=== PATIENT | male | born 1990 | race Caucasian/White ===

== ENCOUNTER 2016-11-10 19:33 | Inpatient (IN) | payer BC, OTHER ==
[~2016-11-10] VITALS: Ht 180.3 cm; Wt 59.6 kg
[~2016-11-10 19:33] MED LIST: CEPH-443 PO; IBUP-1542 PO
[2016-11-10] MEDS ORDERED: SODIUM CHLORIDE 0.9% 1L BAG IV* STA (20:26)
[2016-11-10] MEDS ORDERED: ACETAMINOPHEN 325 MG TAB PO ONE (20:30)
--- NOTE | 2016-11-10 20:46 | RADRPT ---
PROCEDURE: XR Chest AP portable CLINICAL INDICATION: Possible sepsis TECHNIQUE: An AP portable radiograph of the chest was submitted. COMPARISON: None. FINDINGS: Support Hardware: None Cardiovascular: The cardiovascular silhouette appears unremarkable. Lung Castellon: The lung castellon appear clear with no nodule, alveolar infiltrate, or interstitial promi nence evident. Pleural Spaces: No pneumothorax or pleural effusion is identified. Osseous Structures: The osseous structures appear intact. Soft Tissues: The soft tissues appear unremarkable. IMPRESSION: Unremarkable portable chest. Physician Brandee Date Time Electronically viewed and signed by Trudy Price Physician on 11/10/2016 20:46 RH/
[2016-11-10] MEDS ORDERED: METH10TA5 PO (20:47)
[2016-11-10] MEDS ORDERED: PRED10TA PO (20:55)
[2016-11-10 21:06] LABS: BASOPHILS % 0.2 % (0.0-2.0); EOSINOPHILS % 0.3 % (0.0-7.0); HEMATOCRIT 48.8 % (42.0-52.0); HEMOGLOBIN 15.8 g/dl (14.0-18.0); INR 1.03; LYMPHOCYTES # 2.9 10^3/ul (0.8-2.9); LYMPHOCYTES % 19.6 % (15.0-51.0); MEAN CORPUSCULAR HEMOGLOBIN 25.7 pg (29.0-33.0); MEAN CORPUSCULAR HGB CONC 32.4 g/dl (32.0-37.0); MEAN CORPUSCULAR VOLUME 79.5 fl (82.0-101.0); MEAN PLATELET VOLUME 9.6 fl (7.4-10.4); MONOCYTE # 0.5 10^3/ul (0.3-0.9); MONOCYTES % 3.1 % (0.0-11.0); NEUTROPHIL # 11.2 10^3/ul (1.6-7.5); NEUTROPHILS % 76.3 % (39.0-77.0); PLATELET COUNT 303 10^3/UL (140-415); PROTIME 13.5 Sec (12.2-14.2); PT RATIO 1.1; RED BLOOD COUNT 6.14 10^6/ul (4.70-6.10); RED CELL DISTRIBUTION WIDTH 13.2 % (11.5-14.5); WHITE BLOOD COUNT 14.7 10^3/ul (4.8-10.8)
[2016-11-10 21:07] LABS: PARTIAL THROMBOPLASTIN TIME 25.2 Sec (25.0-35.0)
[2016-11-10 21:13] LABS: ALANINE AMINOTRANSFERASE 59 IU/L (13-69); ALBUMIN 4.5 g/dl (3.3-4.9); ALBUMIN/GLOBULIN RATIO 1.95; ALKALINE PHOSPHATASE 57 IU/L (42-121); ANION GAP 20 (8-16); ASPARTATE AMINO TRANSFERASE 31 IU/L (15-46); BILIRUBIN,INDIRECT 0.8 mg/dl (0-1.1); BILIRUBIN,TOTAL 0.8 mg/dl (0.2-1.3); BLOOD UREA NITROGEN 19 mg/dl (7-20); CALCIUM 9.6 mg/dl (8.4-10.2); CARBON DIOXIDE 28 mmol/L (21-31); CHLORIDE 97 mmol/L (97-110); CREATININE 0.88 mg/dl (0.61-1.24); GLUCOSE 91 mg/dl (70-220); POTASSIUM 4.1 mmol/L (3.5-5.1); SODIUM 141 mmol/L (135-144); TOTAL PROTEIN 6.8 g/dl (6.1-8.1)
[2016-11-10 21:33] LABS: TROPONIN-I < 0.012 ng/ml (0.00-0.12)
[2016-11-10] MEDS ORDERED: DIPHENHYDRAMINE 50 MG INJ IV ONE (22:00)
[2016-11-10 22:27] LABS: THYROID STIMULATING HORMONE < 0.015 MIU/L (0.465-4.680)
--- NOTE | 2016-11-10 22:50 | ERA ---
ER Documentation Chief Complaint Date/Time DATE: 11/10/16 TIME: 22:47 Chief Complaint Pt had a break out of rash x2 days but methimazole was started 2.5 wks HPI Patient is a 26-year-old male with recently diagnosed hyperthyroidism who presents with rash and fever. The patient started methimazole 2.5 weeks ago. He started with an itchy rash after this was started. He started with fevers today. He has joint pain and feels like his feet are swelling. He does not currently have an die designer. Upon review of old medical records this is the patient's first visit to the emergency department. ROS All systems reviewed and are negative except as per history of present illness. Medications Home Meds Reported Medications Prednisone* (Prednisone*) 10 Mg Tab, 20 MG PO DAILY for 8 Days, TAB for 8 days 11/10/16 Methimazole* (Methimazole*) 10 Mg Tablet, 10 MG PO DAILY, TAB 11/10/16 Discontinued Reported Medications [none] Unknown Strength No Conflict Check 02/05/15 Discontinued Scripts Ibuprofen* (Motrin*) 600 Mg Tab, 600 MG PO Q6H Y for PAIN AND OR ELEVATED TEMP, #30 Prov:JARAD BOURGEOIS NP 02/05/15 Cephalexin* (Keflex*) 500 Mg Capsule, 500 MG PO QID for 10 Days, CAP Prov:JARAD BOURGEOIS NP 02/05/15 Allergies Allergies: Coded Allergies: No Known Allergy (Unverified , 02/05/15) PMhx/Soc Hyperthyroidism Medical and Surgical Hx: pt denies Surgical Hx History of Surgery: No Anesthesia Reaction: No Hx Neurological Disorder: No Hx Respiratory Disorders: No Hx Cardiac Disorders: No Hx Psychiatric Problems: No Hx Miscellaneous Medical Probl: No Hx Alcohol Use: No Hx Substance Use: No Hx Tobacco Use: Yes Smoking Status: Never smoker FmHx Family History: No diabetes Physical Exam Vitals Vital Signs Date Time Temp Pulse Resp B/P Pulse Ox O2 Delivery O2 Flow Rate FiO2 11/10/16 20:06 101.6 120 24 138/63 100 Physical Exam Const: Moderate distress Head: Atraumatic Eyes: Normal Conjunctiva ENT: Normal External Ears, Nose and Mouth. Neck: Full range of motion..~ No meningismus. Resp: Clear to auscultation bilaterally Cardio: Tachycardic rate without murmur Abd: Soft, non tender, non distended. Normal bowel sounds Skin: Diffuse urticaria which is coalescing and blanches to palpation Back: No midline or flank tenderness Ext: No cyanosis, or edema Neur: Awake and alert Psych: Normal Mood and Affect Result Diagram: 11/10/16202811/10/162028 Results 24 hrs Laboratory Tests Test 11/10/16 20:29 White Blood Count 14.710^3/ul Red Blood Count 6.1410^6/ul Hemoglobin 15.8g/dl Hematocrit 48.8% Mean Corpuscular Volume 79.5fl Mean Corpuscular Hemoglobin 25.7pg Mean Corpuscular Hemoglobin Concent 32.4g/dl Red Cell Distribution Width 13.2% Platelet Count 24176^3/UL Mean Platelet Volume 9.6fl Neutrophils % 76.3% Lymphocytes % 19.6% Monocytes % 3.1% Eosinophils % 0.3% Basophils % 0.2% Nucleated Red Blood Cells % 0.0/100WBC Neutrophils # 11.210^3/ul Lymphocytes # 2.910^3/ul Monocytes # 0.510^3/ul Eosinophils # 0.010^3/ul Basophils # 0.010^3/ul Nucleated Red Blood Cells # 0.010^3/ul Prothrombin Time 13.5Sec Prothrombin Time Ratio 1.1 INR International Normalized Ratio 1.03 Activated Partial Thromboplast Time 25.2Sec Sodium Level 141mmol/L Potassium Level 4.1mmol/L Chloride Level 97mmol/L Carbon Dioxide Level 28mmol/L Anion Gap 20 Blood Urea Nitrogen 19mg/dl Creatinine 0.88mg/dl Glucose Level 91mg/dl Lactic Acid Level 1.5mmol/L Calcium Level 9.6mg/dl Total Bilirubin 0.8mg/dl Direct Bilirubin 0.00mg/dl Indirect Bilirubin 0.8mg/dl Aspartate Amino Transf (AST/SGOT) 31IU/L Alanine Aminotransferase (ALT/SGPT) 59IU/L Alkaline Phosphatase 57IU/L Troponin I < 0.012ng/ml Total Protein 6.8g/dl Albumin 4.5g/dl Globulin 2.30g/dl Albumin/Globulin Ratio 1.95 Thyroid Stimulating Hormone (TSH) < 0.015MIU/L Current Medications Medications (Trade) Dose Ordered Sig/Maida Route PRN Reason Start Time Stop Time Status Last Admin Dose Admin Sodium Chloride (NS) 1,800 ml BOLUS OVER 2 HOURS STAT IV* 11/10/16 20:26 11/10/16 20:28 DC 11/10/16 20:42 Acetaminophen (Tylenol Tab) 650 mg ONCE ONCE PO 11/10/16 20:30 11/10/16 20:31 DC 11/10/16 20:53 Diphenhydramine HCl (Benadryl) 25 mg ONCE ONCE IV 11/10/16 22:00 11/10/16 22:01 DC 11/10/16 21:54 Propranolol HCl (Inderal Iv) 1 mg ONCE ONCE IV 11/10/16 23:00 11/10/16 23:01 Hydrocortisone (Solu-Cortef) 100 mg ONCE ONCE IV 11/10/16 23:00 11/10/16 23:01 Procedures/MDM EKG read by me: Rate/Rhythm: Sinus tachycardia rate of 125 Intervals: Normal Impression: Sinus tachycardia without ischemia Chest x-ray negative per radiology. Patient is a 26-year-old male who presents with fever and tachycardia. He also has a rash. I believe the patient has acute thyroid storm as his TSH is undetectable. The patient is given propranolol 1 mg IV as well as hydrocortisone [address] I receptor Dr. Tirado for consultation and spoke with Dr. Dye who called me back. Dr. Dye did recommend the beta-blockers. The patient had fever and was given Tylenol as well as 30 mL/kg fluid bolus but I do not think the patient has sepsis or infectious etiology at this time. His urticaria may be from a reaction to methimazole but I was concerned about giving epinephrine in a patient who was already in thyroid storm. The patient will be admitted to the intensive care unit under the care of Dr. Son from the panel team. Critical Care: Time: 45 minutes excluding all billable procedures. Treatments/Evaluations: Close monitoring and treatment of unstable vital signs, cardiorespiratory, and neurologic status, while maintaining tight balance of fluid, respiratory, and cardiac interventions. Departure Diagnosis: Primary Impression: Thyroid storm Qualified Code: E05.91 - Thyrotoxicosis with thyrotoxic crisis, unspecified thyrotoxicosis type Additional Impressions: Urticaria Tachycardia Condition: Critical CHONG VILLEGAS MD Nov 10, 2016 22:50
[2016-11-10] MEDS ORDERED: HYDROCORTISONE 100 MG INJ IV ONE (23:00)
[2016-11-10] MEDS ORDERED: PROPRANOLOL 1 MG INJ IV ONE (23:00)
[2016-11-11] MEDS ORDERED: DIPHENHYDRAMINE 50 MG INJ IV ONE ×2 (01:00→13:45)
[2016-11-11] MEDS ORDERED: FAMOTIDINE 20 MG INJ IV ONE (01:00)
[2016-11-11] MEDS ORDERED: SOD CHLORIDE 0.9% 1,000 ML IV SCH (01:01)
--- NOTE | 2016-11-11 01:22 | RADRPT ---
PROCEDURE: CT chest without contrast. CLINICAL INDICATION: Shortness of breath. Thyroid storm TECHNIQUE: Noncontrast CT of the chest was performed utilizing axial images with reconstructions i n sagittal and coronal planes. The administered radiation dose is CTDI 4.6 mGy, DLP 194 mGy-cm. COMPARISON: No pertinent prior examinations are submitted for comparison. FINDINGS: Chest: The lungs are clear. No pleural effusions are seen. The tracheobronchial tree is unremarkable. The heart is normal in size. No pericardial effusion is seen. There is no mediastinal or hilar adenopathy. The thyroid is without obvious abnormality. Visualized Upper abdomen: Unremarkable. Osseous structures: Unremarkable. IMPRESSION: No acute lung pathology. RPTAT: HIKT .Marvin Nuno MD, Date Time Electronically viewed and signed by .Marvin Nuno MD, on 11/11/2016 01:22 .T/
[2016-11-11 01:29] LABS: ADD UMIC NO; UR ASCORBIC ACID NEGATIVE (NEGATIVE); UR BILIRUBIN (Dip) NEGATIVE (NEGATIVE); UR BLOOD (Dip) NEGATIVE (NEGATIVE); UR CLARITY CLEAR (CLEAR); UR COLOR STRAW (YELLOW); UR GLUCOSE (Dip) NEGATIVE (NEGATIVE); UR KETONES (Dip) NEGATIVE (NEGATIVE); UR LEUKOCYTE ESTERASE (Dip) NEGATIVE Leu/ul (NEGATIVE); UR NITRITE (Dip) NEGATIVE (NEGATIVE); UR TOTAL PROTEIN (Dip) NEGATIVE (NEGATIVE); UR UROBILINOGEN (Dip) NEGATIVE (NEGATIVE)
[2016-11-11] MEDS ORDERED: ACETAMINOPHEN 325 MG TAB PO PRN (01:30)
[2016-11-11] MEDS ORDERED: PROPRANOLOL 20 MG TAB PO PRN (01:30)
--- NOTE | 2016-11-11 04:30 | HP ---
Date/Time of Note Date/Time of Note DATE: 11/11/16 TIME: 04:08 Assessment/Plan VTE Prophylaxis VTE Prophylaxis Intervention: SCD's Assessment/Plan Chief Complaint/Hosp Course This is a 26-year-old male being admitted to the ICU floor for: #1 Thyroid storm: BWPS score 50 based on initial ED presentation and vital sign values. TSH less than 0.015. Patient restarted on hydrocortisone and beta -blockers by the ED. Will continue propranolol p.o. and hydrocortisone IV. Will initiate propylthiouracil. Will hold methimazole at this time secondary to likely resulting in patient's allergic reaction. CT of the chest was ordered secondary to patient's complaining of chest tightness CT chest was normal along with x-ray was normal. Will continue to monitor in the ICU. Endocrinology was consulted via the ED. #2 drug reaction: Patient was treated with Benadryl and steroids in the ED for his drug reaction likely to methimazole. He was not given epinephrine secondary to patient's being in thyroid storm and tachycardia. At the current time we will continue to monitor the patient. Will provide IV Benadryl and Pepcid IV as indicated. If any signs of anaphylaxis or angioedema develop will treat accordingly by adding epinephrine. #3 leukocytosis: White blood cell count 14.7. No signs of any infection at this time. Chest x-ray is normal. Urinalysis is normal. Will panculture the patient and continue to monitor for any signs of infection. #4 DVT and GI prophylaxis: SCDs, acid marichuy Further treatment strategy will be implemented as per the clinical course. Problems: HPI/ROS Admit Date/Time Admit Date/Time Hx of Present Illness Chief complaint: Rash all over body, fever This is a a 26-year-old male with recently diagnosed hyperthyroidism who presents with rash and fever. The patient started methimazole 2.5 weeks ago. He started with an itchy rash after this was started. He started with fevers today. He has joint pain and feels like his feet are swelling. Patient states that he went to his primary care doctor's office after he developed a rash approximately 2 days ago and was started on prednisone. Patient has not been showing any improvement. At the current time he also reports that he feels tight in his chest when he takes a deep breath, but he does not feel short of breath. When he takes a deep breath he describes a burning sensation in his bilateral chest.. He does have some itching at the site of his rash. He denies any chest pain, denies any headaches denies any problems with vision. Allergies: NKDA Medications: Methimazole ROS Const: As per HPI Eyes : No pain discharge or redness or change in visual acuity ENT: No pain, sore throat, congestion, congestion, dysphagia or discharge Respiratory: As per HPI Cardiovascular: As per HPI GI : no change in appetite, abdominal pain, nausea, vomiting, diarrhea, constipation, or change in the color his stool Genitourinary: No dysuria, hematuria, flank pain , discharge or CVA tenderness Musculoskeletal: No joint pain, back pain, neck pain, restricted range of motion in neck or joints Skin: As per HPI Neuro: No headache, dizziness, syncope, seizure, focal weakness Endocrine: No polyuria, polydipsia, temperature intolerance Psych: No hallucination, depression, anxiety or suicidal ideation PMH/Family/Social Past Medical History Hyperthyroidism Past Surgical History Past Surgical Hx: no surgical history Family History Significant Family History: other (Thyroid disease) Social History Alcohol Use: rarely Smoking Status: Current every day smoker (Half pack per day 7 years) Drug Use: none Exam/Review of Systems Vital Signs Vitals Vital Signs Date Time Temp Pulse Resp B/P Pulse Ox O2 Delivery O2 Flow Rate FiO2 11/11/16 03:03 99.1 102 16 112/67 97 Room Air Exam Exam General: Patient is a well-developed male lying in bed in moderate distress HEENT: Atraumatic, normocephalic. The pupils are equal, round and reactive. Extraocular motor are intact Neck: Supple with full range of motion. No rigidity or meningismus Chest: Nontender to palpation Lungs: Clear to auscultation bilaterally no crackles rales or wheezing Heart: Sinus tachycardia, no overt murmurs appreciate Abdomen: Soft , nontender, nondistended , bowel sounds are present. No guarding no rebound tenderness , No masses or organomegaly. No costovertebral temporal angle mass Extremities: Normal to inspection, no edema no cyanosis Neurologic: Normal mental status, speech normal, cranial nerves II through XII are intact, motor and sensory are intact, no focal weakness Skin: Extensive urticaria throughout patient's body at various sites. Additional Comments PROCEDURE: CT chest without contrast. CLINICAL INDICATION: Shortness of breath. Thyroid storm TECHNIQUE: Noncontrast CT of the chest was performed utilizing axial images with reconstructions in sagittal and coronal planes. The administered radiation dose is CTDI 4.6 mGy, DLP 194 mGy-cm. COMPARISON: No pertinent prior examinations are submitted for comparison. FINDINGS: Chest: The lungs are clear. No pleural effusions are seen. The tracheobronchial tree is unremarkable. The heart is normal in size. No pericardial effusion is seen. There is no mediastinal or hilar adenopathy. The thyroid is without obvious abnormality. Visualized Upper abdomen: Unremarkable. Osseous structures: Unremarkable. IMPRESSION: No acute lung pathology. RPTAT: HIKT .Marvin Nuno MD, MD Date Time Electronically viewed and signed by .Marvin Nuno MD, on 11/11/2016 01:22 .T/ PROCEDURE: XR Chest AP portable CLINICAL INDICATION: Possible sepsis TECHNIQUE: An AP portable radiograph of the chest was submitted. COMPARISON: None. FINDINGS: Support Hardware: None Cardiovascular: The cardiovascular silhouette appears unremarkable. Lung Simmons: The lung simmons appear clear with no nodule, alveolar infiltrate, or interstitial prominence evident. Pleural Spaces: No pneumothorax or pleural effusion is identified. Osseous Structures: The osseous structures appear intact. Soft Tissues: The soft tissues appear unremarkable. IMPRESSION: Unremarkable portable chest. Physician Brandee Date Time Electronically viewed and signed by Physician Brandee on 11/10/2016 20:46 RH/ CC: CHONG VILLEGAS MD Labs Result Diagram: 11/10/16202811/10/162028 Medications Medications Current Medications Sodium Chloride (NS) 1,000 ml @ 75 mls/hr [id number] IV Last administered on 11/11t 01:49; Admin Dose 75 MLS/HR; Start 11/11/16 at 01:01 Acetaminophen (Tylenol Tab) 650 mg Q6H PRN PO PAIN LEVEL 1-3 OR FEVER; Start at 01:30 Pantoprazole (Protonix Iv) 40 mg DAILY@06 IV ; Start 11/11/16 at 06:00 Propranolol HCl (Inderal) 60 mg Q4H PRN PO ELEVATED HEART RATE; Start 11/11/16 at 01:30 Propylthiouracil (Ptu) 200 mg Q4 PO ; Start 11/11/16 at 05:00; Stop 11/12/16 at 04:59 Hydrocortisone (Solu-Cortef) 100 mg Q8H IV ; Start 11/11/16 at 07:00; Stop 11/12 at 06:59 GIO GALO Nov 11, 2016 04:18
[2016-11-11] MEDS: PROPYLTHIOURACIL 50 MG TAB PO SCH ×3 (05:15→13:16)
[2016-11-11] MEDS ORDERED: PANTOPRAZOLE 40 MG INJ IV SCH (06:00)
[2016-11-11 06:05] LABS: BASOPHILS % 0.2 % (0.0-2.0); EOSINOPHILS % 0.2 % (0.0-7.0); HEMATOCRIT 43.2 % (42.0-52.0); HEMOGLOBIN 14.2 g/dl (14.0-18.0); LYMPHOCYTES # 1.6 10^3/ul (0.8-2.9); LYMPHOCYTES % 12.3 % (15.0-51.0); MEAN CORPUSCULAR HEMOGLOBIN 26.2 pg (29.0-33.0); MEAN CORPUSCULAR HGB CONC 32.9 g/dl (32.0-37.0); MEAN CORPUSCULAR VOLUME 79.7 fl (82.0-101.0); MEAN PLATELET VOLUME 9.2 fl (7.4-10.4); MONOCYTE # 0.2 10^3/ul (0.3-0.9); MONOCYTES % 1.8 % (0.0-11.0); NEUTROPHIL # 11.1 10^3/ul (1.6-7.5); PLATELET COUNT 261 10^3/UL (140-415); RED BLOOD COUNT 5.42 10^6/ul (4.70-6.10); RED CELL DISTRIBUTION WIDTH 13.3 % (11.5-14.5)
[2016-11-11] MEDS: HYDROCORTISONE 100 MG INJ IV SCH ×3 (06:45→22:38)
[2016-11-11 06:49] LABS: BARBITURATES Negative (NEGATIVE); BENZODIAZEPINES Negative (NEGATIVE); CANNABINOIDS Negative (NEGATIVE); COCAINE Negative (NEGATIVE); OPIATES Negative (NEGATIVE)
[2016-11-11 06:52] LABS: ALBUMIN 3.3 g/dl (3.3-4.9); ALBUMIN/GLOBULIN RATIO 1.43; BILIRUBIN,INDIRECT 1.6 mg/dl (0-1.1); BILIRUBIN,TOTAL 1.6 mg/dl (0.2-1.3); CALCIUM 8.2 mg/dl (8.4-10.2); CREATININE 0.84 mg/dl (0.61-1.24); MAGNESIUM 1.6 mg/dl (1.7-2.5); POTASSIUM 4.2 mmol/L (3.5-5.1); TOTAL PROTEIN 5.6 g/dl (6.1-8.1)
[2016-11-11 07:55] LABS: TRIIODOTHYRONINE 1.16 ng/ml (0.97-1.69)
[2016-11-11 07:57] LABS: THYROID STIMULATING HORMONE < 0.015 MIU/L (0.465-4.680)
[2016-11-11 11:33] VITALS: TEMP 98.8
[2016-11-11 12:26] VITALS: BP 120/67; RESP 18
[2016-11-11 12:34] VITALS: Ht 180.3 cm; Wt 59.6 kg
--- NOTE | 2016-11-11 15:37 | CONS ---
Date/Time of Note Date/Time of Note DATE: 11/11/16 TIME: 15:31 Assessment/Plan Assessment/Plan Problems: (1) Graves' disease without crisis Status: Chronic Comment: His initial treatment was entirely correct using methimazole. He is on the rare patients has developed a significant reaction to the methimazole. Please note there is a crossover reaction between PT PT on the methimazole I would not start on this yet. He is not in storm. We will get him under control using the steroids and then reevaluate him early next week. At that time we could try PTU and see if his reaction starts to come back. If does not then he can be on PTU for an 18 month course of therapy. If he does react to this and we will have no choice and he will need to be treated directly with radioactive iodine ablation therapy. (2) Thyrotoxicosis Status: Chronic Comment: He is hyperthyroid and is relatively stabilized. Qualifiers: Qualified Code: E05.00 - Thyrotoxicosis with diffuse goiter and without thyroid storm (3) Allergic reaction to drug Status: Acute Comment: The steroids are the correct maneuver here will continue to follow along expectantly Qualifiers: Qualified Code: T78.40XA - Allergic reaction to drug, initial encounter Consultation Date/Type/Reason Admit Date/Time November 10, 2016 Date of Consultation: Nov 11, 2016 Type of Consultation: Endocrinology Reason for Consultation Graves' disease with thyrotoxicosis and allergic reaction to methimazole Referring Provider: MELISA SALGUERO MD Hx of Present Illness Pleasant 26-year-old engaged Spanish gentleman with a history of Graves' disease. He had been seen by 1 of our colleagues and prescribed methimazole which he did not start until roughly 2-1/2 weeks ago. 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 The patient started the medication for the symptoms of thyrotoxicosis and was tolerating this until approximately 3 days ago when he developed hives rash and symptoms consistent with a serum sickness reaction. He has diffuse joint swelling and tenderness and low-grade fevers. He is otherwise fully mentally competent has no other symptoms consistent with thyroid storm. After presenting to this facility the methimazole was held; and he was placed on a couple of dosages of PTU. He was also treated correctly with hydrocortisone IV Constitutional: febrile Eyes: no complaints ENT: no complaints Respiratory: no complaints Cardiovascular: palpitations Gastrointestinal: no complaints (Specifically denies nausea or) Genitourinary: no complaints Musculoskeletal: bone/joint pain (Diffuse joint pain especially in the hands) Skin: pruritis (Hives) Neurologic: no complaints Endocrine: temp intolerance Past Medical History Medical History: hyperthyroid (Graves' disease) Past Surgical History Past Surgical Hx: no surgical history Family History Significant Family History: no pertinent family hx Social History Alcohol Use: rarely Smoking Status: Never smoker Drug Use: none Exam/Review of Systems Vital Signs Vitals Vital Signs Date Time Temp Pulse Resp B/P Pulse Ox O2 Delivery O2 Flow Rate FiO2 11/11/16 12:26 98.1 70 18 120/67 98 11/11/16 11:33 Room Air Exam Constitutional: alert, oriented Head: atraumatic, normocephalic Neck: non-tender, supple Respiratory: clear to auscultation, normal air movement Cardiovascular: nl pulses, regular rate and rhythm Gastrointestinal: nl liver, spleen, non-tender, soft Extremities: other (He has tenderness over the joints especially the PIP joints and the MCP joints. There is modest swelling and tenderness.) Neurological: BASS VIOL REPAIRER II-XII intact, nl mental status, nl speech, nl strength Skin: other Results Result Diagram: 11/11/16 0533 11/11/16 0533 Results 24 hrs Laboratory Tests Test 11/10/16 20:29 11/10/16 22:50 11/11/16 00:41 11/11/16 01:00 White Blood Count 14.7 H Red Blood Count 6.14 H Hemoglobin 15.8 Hematocrit 48.8 Mean Corpuscular Volume 79.5 L Mean Corpuscular Hemoglobin 25.7 L Mean Corpuscular Hemoglobin Concent 32.4 Red Cell Distribution Width 13.2 Platelet Count 303 Mean Platelet Volume 9.6 Neutrophils % 76.3 Lymphocytes % 19.6 Monocytes % 3.1 Eosinophils % 0.3 Basophils % 0.2 Nucleated Red Blood Cells % 0.0 Neutrophils # 11.2 H Lymphocytes # 2.9 Monocytes # 0.5 Eosinophils # 0.0 Basophils # 0.0 Nucleated Red Blood Cells # 0.0 Prothrombin Time 13.5 Prothrombin Time Ratio 1.1 INR International Normalized Ratio 1.03 Activated Partial Thromboplast Time 25.2 Sodium Level 141 Potassium Level 4.1 Chloride Level 97 Carbon Dioxide Level 28 Anion Gap 20 H Blood Urea Nitrogen 19 Creatinine 0.88 Glucose Level 91 Lactic Acid Level 1.5 0.9 0.9 Calcium Level 9.6 Total Bilirubin 0.8 Direct Bilirubin 0.00 Indirect Bilirubin 0.8 Aspartate Amino Transf (AST/SGOT) 31 Alanine Aminotransferase (ALT/SGPT) 59 Alkaline Phosphatase 57 Troponin I < 0.012 Total Protein 6.8 Albumin 4.5 Globulin 2.30 Albumin/Globulin Ratio 1.95 Thyroid Stimulating Hormone (TSH) < 0.015 L Free Thyroxine 1.40 Urine Color STRAW Urine Clarity CLEAR Urine pH 6.0 Urine Specific [place] 1.010 Urine Ketones NEGATIVE Urine Nitrite NEGATIVE Urine Bilirubin NEGATIVE Urine Urobilinogen NEGATIVE Urine Leukocyte Esterase NEGATIVE Urine Hemoglobin NEGATIVE Urine Glucose NEGATIVE Urine Total Protein NEGATIVE Urine Opiates Screen Negative Urine Barbiturates Negative Urine Amphetamines Screen Negative Urine Benzodiazepines Screen Negative Urine Cocaine Screen Negative Urine Cannabinoids Negative Test 11/11/16 05:33 White Blood Count 13.0 H Red Blood Count 5.42 Hemoglobin 14.2 Hematocrit 43.2 Mean Corpuscular Volume 79.7 L Mean Corpuscular Hemoglobin 26.2 L Mean Corpuscular Hemoglobin Concent 32.9 Red Cell Distribution Width 13.3 Platelet Count 261 Mean Platelet Volume 9.2 Neutrophils % 85.0 H Lymphocytes % 12.3 L Monocytes % 1.8 Eosinophils % 0.2 Basophils % 0.2 Nucleated Red Blood Cells % 0.0 Neutrophils # 11.1 H Lymphocytes # 1.6 Monocytes # 0.2 L Eosinophils # 0.0 Basophils # 0.0 Nucleated Red Blood Cells # 0.0 Sodium Level 138 Potassium Level 4.2 Chloride Level 99 Carbon Dioxide Level 28 Anion Gap 15 Blood Urea Nitrogen 15 Creatinine 0.84 Glucose Level 119 Calcium Level 8.2 L Magnesium Level 1.6 L Total Bilirubin 1.6 H Direct Bilirubin 0.00 Indirect Bilirubin 1.6 H Aspartate Amino Transf (AST/SGOT) 21 Alanine Aminotransferase (ALT/SGPT) 44 Alkaline Phosphatase 45 C-Reactive Protein 4.3 H Total Protein 5.6 #L Albumin 3.3 # Globulin 2.30 Albumin/Globulin Ratio 1.43 Thyroid Stimulating Hormone (TSH) < 0.015 L Free Thyroxine 1.25 Thyroxine (T4) 6.5 Free Triiodothyronine (T3) pg/mL 5.40 H Total Triiodothyronine 1.16 Medications Medications Current Medications Acetaminophen (Tylenol Tab) 650 mg Q6H PRN PO PAIN LEVEL 1-3 OR FEVER; Start at 01:30 Propranolol HCl (Inderal) 60 mg Q4H PRN PO ELEVATED HEART RATE; Start 11/11/16 at 01:30 Propylthiouracil (Ptu) 200 mg Q4 PO Last administered on 11/11/16 13:16; Admin Dose 200 MG; Start 11/11/16 at 05:00; Stop 11/12/16 at 04:59 Hydrocortisone (Solu-Cortef) 100 mg Q8H IV Last administered on 11/11/16 15:21 ; Admin Dose 100 MG; Start 11/11/16 at 07:00; Stop 11/12/16 at 06:59 Pantoprazole (Protonix Tab) 40 mg DAILY@06 PO ; Start 11/12/16 at 06:00 CHARLEEN CARDONA MD Nov 11, 2016 15:37
--- NOTE | 2016-11-11 16:23 | RADRPT ---
Echocardiogram Report Patient Name: JARAD MARADIAGA Gender: Male Date: 1990 Study Date: 11-Nov-2016 Cheese Blender: Pascual Mejia RDCS Location: 5 Ref. Physician: GIO GALO Quality: Adequate Procedures: Transthoracic echocardiogram with complete 2D, M-Mode, and doppler examination. Indications: thyroid storm. Tachycardia. 2D/M Mode Doppler Measurement Value Normal Ranges Measurement Value Normal Ranges LVIDd 2D 4.3 3.5 - 5.6 cm AV Peak Reji 1.3 m/sec LVIDs 2D 3.1 2.1 - 4.1 cm AV Peak PG 7.0 mmHg FS 2D 27.5 % LVOT Peak Reji 1.0 m/sec LVPWd 2D 1.0 0.6 - 1.1 cm LVOT Peak PG 4.0 mmHg IVSd 2D 0.8 0.6 - 1.1 cm MV E Peak Reji 0.8 m/sec IVS/LVPW 2D 0.8 MV A Peak Reji 0.7 m/sec AoR Diam 2D 2.8 2.0 - 3.7 cm MV E/A 1.2 LA/Ao 2D 1 0 - 1 MV Decel Time 158 msec EDV 2D 76.8 cm3 MV E/A 1.2 ESV 2D 29.2 cm3 TR Peak Rjei 2.3 m/sec LA Dimen 2D 2.9 2.3 - 4.0 cm TR Peak PG 22.0 mmHg RVSP 25.0 mmHg Findings Left Ventricle: Lower limits of normal systolic function. Normal left ventricular cavity size. Normal left ventricular wall thickness. Mild global left ventricular systolic dysfunction. Ejection fraction is visually estimated at 5055 %. Tissue Doppler/Mitral Doppler indices are within normal limits. Right Ventricle: Normal right ventricular size. Normal right ventricular systolic function. Left Atrium: The left atrium is normal in size. Right Atrium: The right atrium is normal in size. Mitral Valve: Normal appearance and function of the mitral valve with trace physiologic regurgitation. Aortic Valve: Normal appearance of the aortic valve. No significant aortic stenosis or insufficiency. Tricuspid Valve: Normal appearance and function of the tricuspid valve with trace physiologic regurgitation. Normal right ventricular systolic pressure. Estimated peak PA systolic pressure 25 mmHg. Pulmonic Valve: Normal pulmonic valve appearance. Pericardium: Normal pericardium with no significant pericardial effusion. Aorta: Normal aortic root. IVC: Normal size and normal respiratory collapse consistent with normal right atrial pressure. Conclusions 1.Lower limits of normal systolic function. Normal left ventricular cavity size. Normal left ventricular wall thickness. Mild global left ventricular systolic dysfunction. Ejection fraction is visually estimated at 50-55 %. Tissue Doppler/Mitral Doppler indices are within normal limits. 2.Normal appearance and function of the mitral valve with trace physiologic regurgitation. 3.Normal appearance and function of the tricuspid valve with trace physiologic regurgitation. Normal right ventricular systolic pressure. Estimated peak PA systolic pressure 25 mmHg. Electronically Signed By: Aiden Estrada 11-Nov-2016 16:22:39 -0700 Patient Name: JARAD MARADIAGA Study Date: 11-Nov-[id number]
[2016-11-11] MEDS: METOPROLOL 50 MG TAB PO SCH (17:55)
[2016-11-11] MEDS: NICOTINE (14 MG/24 HR) PATCH TRANSDERM SCH (19:30)
[2016-11-11] MEDS ORDERED: RANITIDINE 150 MG TAB PO PRN (19:30)
[2016-11-11 20:02] VITALS: BP 127/78; RESP 20
[2016-11-11 20:11] VITALS: PULSE 112
[2016-11-11] MEDS: DIPHENHYDRAMINE 50 MG INJ IV PRN (21:14)
[2016-11-12] VITALS (9 sets, daily range): BP systolic 108–123; BP diastolic 60–69; PULSE 77–111; RESP 19–20
[2016-11-12] MEDS ORDERED: LORAZEPAM 2 MG INJ IV ONE (02:00)
[2016-11-12] MEDS: DIPHENHYDRAMINE 50 MG INJ IV PRN ×2 (04:00→10:18)
[2016-11-12] MEDS ORDERED: PANTOPRAZOLE (EC) 40 MG TAB PO SCH (06:00)
[2016-11-12] MEDS: METOPROLOL 50 MG TAB PO SCH (07:55)
[2016-11-12] MEDS: HYDROCORTISONE 100 MG INJ IV SCH ×2 (08:24→16:00)
[2016-11-12] MEDS: NICOTINE (14 MG/24 HR) PATCH TRANSDERM SCH (08:30)
[2016-11-12] MEDS ORDERED: METO-429 PO (15:50)
[2016-11-12] MEDS ORDERED: DIPH50VI2 PO (15:50)
--- NOTE | 2016-11-12 15:52 | PDOCDIS ---
Discharge Instructions CONDITION Patient Condition: Good HOME CARE INSTRUCTIONS: Diet Instructions: RegularSpecial Diet: 1800 khadar, 2 GM Na ACTIVITY: Activity Restrictions: No Restrictions FOLLOW UP/APPOINTMENTS Follow-up Plan See Dr Tirado in clinic for management of your hyperthyroidism You have been prescribed diphenhydramine (benadryl) which is an antihistamine which is used for you allergic reaction and is effective for hives. Return to the emergency room if you feel any difficulty breathing immediately, or if you have any other concerning symptoms MELISA SALGUERO MD Nov 12, 2016 15:52
[2016-11-12] MEDS ORDERED: PRED10TA PO (15:57)
[2016-11-12] MEDS ORDERED: PROP40TA4 PO (15:57)
--- NOTE | 2016-11-12 15:59 | PDOCDIS ---
Discharge Instructions CONDITION Patient Condition: Stable HOME CARE INSTRUCTIONS: Diet Instructions: RegularSpecial Diet: 1800 khadar, 2 GM Na ACTIVITY: Activity Restrictions: No Restrictions FOLLOW UP/APPOINTMENTS Follow-up Plan Follow up with Dr Tiraod within 1 week Call his office at [phone] to make an appointment MELISA SALGUERO MD Nov 12, 2016 15:59
--- NOTE | 2016-11-12 17:41 | DS ---
Date/Time of Note Date/Time of Note DATE: 11/12/16 TIME: 17:40 Discharge Summary Admission/Discharge Info Admit Date/Time Nov 10, 2016 at 22:39 Discharge Date/Time Nov 12, 2016 at 16:50 Patient Condition: Good Hx of Present Illness Chief complaint: Rash all over body, fever This is a a 26-year-old male with recently diagnosed hyperthyroidism who presents with rash and fever. The patient started methimazole 2.5 weeks ago. He started with an itchy rash after this was started. He started with fevers today. He has joint pain and feels like his feet are swelling. Patient states that he went to his primary care doctor's office after he developed a rash approximately 2 days ago and was started on prednisone. Patient has not been showing any improvement. At the current time he also reports that he feels tight in his chest when he takes a deep breath, but he does not feel short of breath. When he takes a deep breath he describes a burning sensation in his bilateral chest.. He does have some itching at the site of his rash. He denies any chest pain, denies any headaches denies any problems with vision. Allergies: NKDA Medications: Methimazole Hospital Course Patient was given benadryl and hydrocortisone for his allergic reaction/hives. He was markedly improved by HOD 2 and discharged. He remained tachycardic so propranolol was prescribed at discharge. He will follow up with Dr Tirado in clinic for further management of his hyperthyroidism. Home Meds Active Scripts Propranolol Hcl* (Propranolol Hcl*) 40 Mg Tablet, 40 MG PO QID for 28 Days, #60 TAB Prov:MELISA SALGUERO MD 11/12/16 Prednisone* (Prednisone*) 10 Mg Tab, 20 MG PO DAILY for 8 Days, TAB for 8 days Prov:MELISA SALGUERO MD 11/12/16 Diphenhydramine HCl (Diphenhydramine HCl) 50 Mg/1 Ml Vial, 50 MG PO Q6H Y for ALLERGIC REACTION for 14 Days, #30 VIAL Prov:MELISA SALGUERO MD 11/12/16 Discontinued Reported Medications Methimazole* (Methimazole*) 10 Mg Tablet, 10 MG PO DAILY, TAB 11/10/16 [none] Unknown Strength No Conflict Check 02/05/15 Discontinued Scripts Ibuprofen* (Motrin*) 600 Mg Tab, 600 MG PO Q6H Y for PAIN AND OR ELEVATED TEMP, #30 Prov:JARAD BOURGEOIS NP 02/05/15 Cephalexin* (Keflex*) 500 Mg Capsule, 500 MG PO QID for 10 Days, CAP Prov:JARAD BOURGEOIS NP 02/05/15 Primary Care Provider Not On Staff Doctor MELISA SALGUERO MD Nov 12, 2016 17:41
== END 2016-11-12 16:50 | disposition home or self-care (01) | DRG 606 ==
LOC: E/R 19:33 → TEL 22:39
PROVIDERS: ADMIT Family Medicine; ATTEND Family Medicine
DX: L25.8 Unspecified contact dermatitis due to other agents (principal); E05.01 Thyrotoxicosis with diffuse goiter with thyrotoxic crisis or storm; R21 Rash and other nonspecific skin eruption; R50.9 Fever, unspecified; Y92.009 Unspecified place in unspecified non-institutional (private) residence as the place of occurrence of the external cause; T38.2X5A Adverse effect of antithyroid drugs, initial encounter; D72.829 Elevated white blood cell count, unspecified; E05.90 Thyrotoxicosis, unspecified without thyrotoxic crisis or storm
CPT/HCPCS: 36415; 71010; 71250; 80053; 80307; 81003; 83605; 83735; 84436; 84439; 84443; 84480; 84481; 84484; 85025; 85610; 85730; 86140; 87040; 87086; 93005; 93306; 96374; 96375; 96376; J1800; C9113; J1200; J1720; J2060; J7030